=== PATIENT | female | born 1990 | race Caucasian/White ===

== ENCOUNTER 2018-04-08 19:51 | Emergency (ER) | payer MEDICAID, SELFPAY ==
[2018-04-08 19:53] VITALS: BP 149/83; PULSE 92; RESP 17; TEMP 36.7; O2SAT 97; BMI 26.9
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
[2018-04-08] MEDS: Ibuprofen 600 MG Tablet PO (20:12)
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
== END 2018-04-08 21:50 | disposition home or self-care (01) ==
PROVIDERS: Emergency Provider Emergency Medicine
DX: S16.1XXA Strain of muscle, fascia and tendon at neck level, initial encounter (principal); S39.012A Strain of muscle, fascia and tendon of lower back, initial encounter; V43.62XA Car passenger injured in collision with other type car in traffic accident, initial encounter; Y93.9 Activity, unspecified; Y92.481 Parking lot as the place of occurrence of the external cause; Y99.9 Unspecified external cause status; Z72.0 Tobacco use
CPT/HCPCS: 72040; 72100; 99283

== ENCOUNTER 2018-09-03 08:49 | Emergency (ER) | payer MEDICAID, SELFPAY ==
[2018-09-03 08:50] VITALS: BP 134/83; PULSE 74; RESP 15; TEMP 36.7; O2SAT 99; BMI 26.5
--- NOTE | 2018-09-03 09:04 | EKG12_ITS ---
Test Reason : CP Blood Pressure : / mmHG Vent. Rate : 072 BPM Atrial Rate : 072 BPM P-R Int : 154 ms QRS Dur : 104 ms QT Int : 404 ms P-R-T Axes : 058 081 032 degrees QTc Int : 442 ms Normal sinus rhythm with sinus arrhythmia Incomplete right bundle branch block Borderline ECG Confirmed by JAVIER WATSON, FOREIGN ([id number]), movie editor LUPILLO HAYES ([id number]) on 09/09/2018 4:12:08 PM Referred By: ERICK/ANGELA Confirmed By:FOREIGN HERRERA MD
--- NOTE | 2018-09-03 09:09 | ED.DCSUM_ITS ---
- ER Visit Summary Date of Service: 09/03/18 Chief Complaint: Chest pain History of Present Illness: The patient is a 27 F with right side chest pain. The pain is sharp and came on suddenly. It has been continuous since yesterday evening. It radiates through to her right upper back. Worse with breathing and coughing. No hemoptysis or sputum. No fevers. No leg pain or swelling. She does smoke and she has a Mirena in place. No history of blood clots. No history of heart disease. No exertional component. No history of aortic disease. No recent trauma. She is currently being treated with antibiotics for strep throat. Physical Examination: Afebrile and vital signs are unremarkable. Alert and oriented. No acute distress. Skin appears normal without diaphoresis or pallor. Heart regular rate and rhythm. Lungs clear. Calves soft and supple. Pulses strong and equal. Test Results: EKG showed sinus rhythm with nonspecific changes and an incomplete right bundle branch block pattern. Laboratory studies and chest x-ray are pending. Emergency Department Course and Treatment: EKG was done in nondiagnostic. No sign of acute ischemia or infarction pattern. Patient was placed on a monitor. She is low risk for PE, so a d-dimer was ordered. We will also check troponin and basic blood work given her recent infection. Workup was completely unremarkable. ACS, PE, and aortic pathology is extremely unlikely. There is nothing to suggest pneumonia or infection. I suspect the patient has myofascial chest pain. She was treated with anti-inflammatories and will follow-up as an outpatient. Return for any new or worsening issues. Treatment Plan: As above Disposition: Discharge Impression: 1. Chest wall pain This note was generated with [email or web address] dictation software. It may contain incorrect words, spelling, and punctuation that were not noted in review of the chart prior to signing ED Disposition - Plan for ED Patient: Referrals: Care Physician,No Primary [Primary Care Provider] -
--- NOTE | 2018-09-03 09:11 | RAD_ITS ---
STUDY: X-RAY CHEST REASON FOR EXAM: Female, 27 years old. Right-sided chest pain. Cough and cold-like symptoms. TECHNIQUE: Single AP portable view of the chest. COMPARISON: None. FINDINGS: EKG electrodes are seen. The lungs are clear and expanded. There is no demonstrated pleural abnormality. Normal size heart. Normal mediastinum and [place]. Normal visualized pulmonary arteries. Normal visualized aortic arch and descending thoracic aorta. Normal visualized thoracic spine. Normal visualized ribs, clavicles, and shoulders. There is no demonstrated abnormality of the visualized soft tissue structures of the upper abdomen. RAD/Chest 1 View (Portable) IMPRESSION: Normal x-ray examination of the chest. Electronically Signed: Altaf Aguayo, at 9:32 EDT , Service support ,
[2018-09-03 09:22] VITALS: O2SAT 99
[2018-09-03 09:22] LABS: Absolute Neutrophil Count 3.9 X10^3/uL (2.0-7.7); Basophil# 0.01 X10^3/uL; Basophil% 0.2 % (0-1); Eosinophil# 0.04 X10^3/uL; Eosinophils% 0.6 % (0-5); Lymphocyte % 25.8 % (19-41); Mean Corp Hgb Conc 34.9 g/gl (32-36); Mean Corpuscular Hgb 30.5 pg (27.0-32.0); Mean Corpuscular Volume 87.4 fL (81-99); Mean Platelet Vol. 9.9 fl (6.2-12.0); Monocyte% 9.7 % (0-10); Neutrophil # 3.92 X10^3/uL (2.7-7.7); Neutrophil % 63.1 % (47-70); Platelet Count 260 K/mm3 (150-450); RBC Distribution Width CV 12.3 % (11.6-14.6); RBC Distribution Width SD 38.8 fl (35.1-43.9); Red Blood Count 4.92 M/mm3 (4.2-5.4); White Blood Count 6.2 K/mm3 (4.4-11.0)
[2018-09-03 09:26] LABS: POSITIVE COUNT NO; POSITIVE DIFFERENTIAL NO; POSITIVE MORPHOLOGY NO
[2018-09-03 09:32] LABS: Anion Gap 6 (5-15); BUN 14 mg/dL (7-18); BUN/Creat Ratio 16.2 RATIO (10-20); Calcium,Total 9.1 mg/dL (8.5-10.1); Chloride 105 mmol/L (98-107); Creatinine, Serum 0.87 mg/dL (0.55-1.02); EST Glomerular Filtration Rate 82 mL/min (>60); Est Glom Filt Rate - Afr Amer 99 mL/min (>60); Estimated Creatinine Clearance 75.46 ml/min; Glucose 96 mg/dL (74-106); Potassium 3.7 mmol/L (3.5-5.1); Sodium Level 139 mmol/L (136-145)
[2018-09-03 09:33] LABS: D-Dimer Quantitative (DVT/PE) < 0.27 FEU/ug/m (0.27-0.49)
--- NOTE | 2018-09-03 09:42 | ED.DEP ---
ED Disposition - Plan for ED Patient: Instructions: ED Chest Pain Atypical Unkn Cause Prescriptions: Ibuprofen [Motrin] 800 mg PO TID PRN PRN #20 tab PRN Reason: Pain Referrals: Louann Cuevas [NON-STAFF] -
[2018-09-03 09:46] VITALS: BP 128/56; PULSE 65; RESP 16; O2SAT 98
== END 2018-09-03 09:54 | disposition home or self-care (01) ==
LOC: ED 09:21
PROVIDERS: Emergency Provider Emergency Medicine
DX: R07.89 Other chest pain (principal); Z72.0 Tobacco use
CPT/HCPCS: 71045; 80048; 84484; 85025; 85379; 93005; 99284

== ENCOUNTER 2021-07-19 08:51 | Outpatient (CLI) | payer MEDICAID, SELFPAY ==
--- NOTE | 2021-07-19 08:59 | RAD_ITS ---
STUDY: X-RAY - CERVICAL SPINE REASON FOR EXAM: Female, 30 years old. CERVICAL STRAIN TECHNIQUE: 5 view(s) of the cervical spine were obtained. COMPARISON: None FINDINGS: Normal anterior atlantoaxial articulation. Normal odontoid process. Normal cervical lordosis. Normal vertebral bodies and endplates. Normal disc space heights. Normal visualized intervertebral neuroforamina. The soft tissue structures are unremarkable. RAD/Cerv Spine 4 or 5 Views IMPRESSION: Normal x-ray examination of the visualized cervical spine. Electronically Signed: Monico Medina MD at 13:40 EST ,
--- NOTE | 2021-07-19 09:00 | RAD_ITS ---
STUDY: X-RAY - LUMBAR SPINE REASON FOR EXAM: Female, 30 years old. LUMBAR STRAIN TECHNIQUE: 5 view(s) of the lumbar spine were obtained. COMPARISON: None FINDINGS: Normal lumbar lordosis. There is no substantial scoliosis. There is a normal alignment of the vertebrae. Normal vertebral bodies and endplates. Normal disc space heights. The soft tissue structures are unremarkable. RAD/L/S Spine Min 4 Views IMPRESSION: Normal x-ray examination of the lumbar spine. Electronically Signed: Monico Medina MD at 13:42 EST ,
== END 2021-07-19 23:59 | disposition home or self-care (01) ==
LOC: RAD 08:57
PROVIDERS: Referring Provider Chiropractor; Visit Provider Chiropractor
DX: S33.5XXA Sprain of ligaments of lumbar spine, initial encounter (principal); S13.4XXA Sprain of ligaments of cervical spine, initial encounter
CPT/HCPCS: 72050; 72110

== ENCOUNTER 2021-07-28 17:20 | Outpatient (CLI) | payer MEDICAID, SELFPAY ==
--- NOTE | 2021-07-28 17:20 | RAD_ITS ---
STUDY: X-RAY - THORACIC SPINE REASON FOR EXAM: Female, 30 years old. pain TECHNIQUE: 3 view(s) of the thoracic spine were obtained. COMPARISON: None. FINDINGS: Normal kyphosis of the thoracic spine. Mild levoscoliosis of the upper thoracic spine. Normal thoracic vertebrae and endplates. Normal disc space heights. The soft tissue structures are unremarkable. RAD/Thoracic Spine 3 Views IMPRESSION: Mild levoscoliosis of the upper thoracic spine. Electronically Signed: Dong Wynne MD at 8:38 EST ,
== END 2021-07-28 23:59 | disposition home or self-care (01) ==
LOC: RAD 17:22
PROVIDERS: Visit Provider Chiropractor
DX: S23.3XXA Sprain of ligaments of thoracic spine, initial encounter (principal)
CPT/HCPCS: 72072